=== PATIENT | female | born 1935 | race Asian ===

== ENCOUNTER → 2016-06-19 | Outpatient (CLI) | payer OTHER ==
[~2016-06-19] MED LIST: ASPI-825 PO; CALC500T62 PO; DILT300T7 PO; DONE5TAB PO; FLUT1DIS3 IH; ISOS60TA4 PO; LIDOP TP; METF500T4 PO; MIRT30TA PO; MULT1TAB70 PO; OLME40 PO; OMEP20CA10 PO; RALO60 PO; SIMV40TA5 PO; TRAM-355 PO
== END | disposition home or self-care (01) ==
LOC: RADPV 10:38
PROVIDERS: ATTEND Internal Medicine
DX: I50.9 Heart failure, unspecified (principal); I51.7 Cardiomegaly
CPT/HCPCS: 71020